=== PATIENT | female | born 1975 | race Caucasian/White ===

== ENCOUNTER → 2018-05-09 | Outpatient (CLI) | payer OTHER ==
[~2018-05-09] MED LIST: HYDROCODONE-AP1 EAC6 PO; IMODIUM A-D1 MG/5 ML PO; LEXAPRO20 MG PO; PHENERGAN25 MG RE; POTASSIUM20; TOPAMAX50 MG PO
== END ==
LOC: M.RAD 15:26
DX: Z12.31 Encounter for screening mammogram for malignant neoplasm of breast (principal)

== ENCOUNTER → 2020-11-27 | Outpatient (CLI) | payer OTHER | LOC: M.RAD 09:23 | PROVIDERS: ATTEND Family Medicine | DX: Z12.31 Encounter for screening mammogram for malignant neoplasm of breast (principal); N63.10 Unspecified lump in the right breast, unspecified quadrant; N60.01 Solitary cyst of right breast ==

== ENCOUNTER → 2020-12-05 | Outpatient (CLI) | payer OTHER | LOC: M.ULTRA 10:47 | PROVIDERS: ATTEND Family Medicine | DX: N60.01 Solitary cyst of right breast (principal) ==

== ENCOUNTER → 2021-03-13 | Outpatient (CLI) | payer OTHER | LOC: M.ULTRA 09:55 | PROVIDERS: ATTEND Family Medicine | DX: I82.601 Acute embolism and thrombosis of unspecified veins of right upper extremity (principal); I80.9 Phlebitis and thrombophlebitis of unspecified site ==